=== PATIENT | male | born 1950 | race Caucasian/White ===

== ENCOUNTER 2017-09-10 09:17 | Outpatient (CLI) | payer OTHER ==
[~2017-09-10 09:17] MED LIST: ASPI-1265 PO; ATOR20TA66 PO; BUME2TAB3 PO; CHOL10002 PO; FERR325T32 PO; LOSA50TA3 PO; MINO10TA16 PO; NITR0.4T48 SL; PANT-47 PO; POTA-82 PO; POTA10CA44 PO; SPIR25TA3 PO
[2017-09-10] MEDS ORDERED: iohexol 300mg/ml 100ml inj. ONE (09:46)
== END 2017-09-10 23:59 | disposition home or self-care (01) ==
LOC: 64 CT 09:17
PROVIDERS: ATTEND Internal Medicine
DX: K80.20 Calculus of gallbladder without cholecystitis without obstruction (principal); J90 Pleural effusion, not elsewhere classified; I11.0 Hypertensive heart disease with heart failure; I50.9 Heart failure, unspecified; I70.0 Atherosclerosis of aorta
CPT/HCPCS: 74178; J7030; Q9967